=== PATIENT | female | born 1970 | race Caucasian/White ===

== ENCOUNTER 2017-12-07 15:45 | Emergency (ER) | payer OTHER ==
[~2017-12-07] VITALS: Ht 160 cm; Wt 75.0 kg
[2017-12-07] MEDS ORDERED: HYDR25TA PO (15:52)
[2017-12-07 16:42] VITALS: BP 130/91
[2017-12-07] MEDS: IBUPROFEN 800 MG TABLET PO ONE (17:10)
[2017-12-07] MEDS: GENTAMICIN SULFATE 0.3% OPHTHALMIC SOLUTION 5 ML OS ONE (17:15)
== END 2017-12-07 17:48 | disposition home or self-care (01) ==
LOC: EMS 15:47
DX: H10.9 Unspecified conjunctivitis (principal); I10 Essential (primary) hypertension; F17.210 Nicotine dependence, cigarettes, uncomplicated; Z88.5 Allergy status to narcotic agent
CPT/HCPCS: 99283; 99406